=== PATIENT | male | born 1960 | race Caucasian/White ===

== ENCOUNTER 2018-08-31 05:43 | Day surgery (SDC) | payer OTHER ==
[2018-08-31] MEDS ORDERED: PERCOCET 5-3251 EACH PO (07:54)
[2018-08-31] MEDS ORDERED: COLACE100 MG PO (07:54)
[2018-08-31] MEDS ORDERED: ULTRACET PO (09:17)
== END 2018-08-31 13:50 | disposition home or self-care (01) ==
LOC: CIR.AMB 05:43 → EDSEX 05:43 → CIR.AMB 07:45
DX: K64.8 Other hemorrhoids (principal)